=== PATIENT | female | born 1975 | race Two or more races ===

== ENCOUNTER 2019-06-05 09:27 | Outpatient (CLI) | payer OTHER | END 2019-06-05 23:59 | disposition home or self-care (01) | LOC: CFH 09:27 | PROVIDERS: ATTEND Physician Assistant | DX: N63.11 Unspecified lump in the right breast, upper outer quadrant (principal) | CPT/HCPCS: 76642; 77066 ==

== ENCOUNTER → 2020-06-09 | Outpatient (CLI) | payer OTHER | END | disposition home or self-care (01) | LOC: CFH 10:29 | PROVIDERS: ATTEND Physician Assistant | DX: Z12.31 Encounter for screening mammogram for malignant neoplasm of breast (principal) | CPT/HCPCS: 77063; 77067 ==